=== PATIENT | female | born 1985 | race Caucasian/White ===

== ENCOUNTER 2020-10-28 08:37 | Emergency (ER) | payer SELFPAY ==
[2020-10-28 08:42] VITALS: BMI 28.4
[2020-10-28] MEDS ORDERED: SODIUM CHLORIDE 0.9% 500 ML INFUS.BAG IV ONE (09:09)
[2020-10-28] MEDS ORDERED: ONDANSETRON 4 MG/2 ML VIAL IVPUSH ONE (09:09)
[2020-10-28] MEDS ORDERED: FAMOTIDINE 10 MG TABLET PO ONE (09:09)
[2020-10-28] MEDS ORDERED: MAG HYDROX/AL HYDROX/SIMETH 30 ML UNIT-DOSE CUP PO ONE (09:10)
[2020-10-28] MEDS ORDERED: MAG HYDROX/AL HYDROX/SIMETH 30 ML UNIT-DOSE CUP ONE (09:17)
[2020-10-28] MEDS ORDERED: FAMOTIDINE 20 MG TABLET ONE (09:17)
[2020-10-28] MEDS ORDERED: ONDANSETRON 4 MG/2 ML VIAL ONE (09:18)
[2020-10-28 10:48] LABS: BASO % 0.4 % (0-2.0); EOS % 1.1 % (0-4.5); HEMATOCRIT 42.3 % (32.4-45.2); HEMOGLOBIN 14.6 GM/dL (10.7-15.3); LYMPH % 22.5 % (8-40); MCH 30.5 pg (25.7-33.7); MCHC 34.6 g/dl (32.0-36.0); MEAN CELL VOLUME 88.2 fl (80-96); MEAN PLT VOLUME 8.7 fl (7.5-11.1); MONO % 7.5 % (3.8-10.2); NEUT % 68.5 % (42.8-82.8); PLATELET COUNT 274 K/MM3 (134-434); RDW 13.2 % (11.6-15.6); WHITE BLOOD COUNT 10.2 K/mm3 (4.0-10.0)
[2020-10-28 11:06] LABS: ALBUMIN 4.1 g/dl (3.4-5.0); BLOOD UREA NITROGEN 7.6 mg/dL (7-18); CALCIUM 9.4 mg/dL (8.5-10.1)
[2020-10-28 11:09] LABS: CREATININE 0.6 mg/dL (0.55-1.3)
[2020-10-28 11:11] LABS: BILIRUBIN,TOTAL 0.4 mg/dL (0.2-1); TOT PROT 7.7 g/dl (6.4-8.2)
[2020-10-28 11:29] LABS: URINE APPEARANCE CLEAR; URINE BILIRUBIN NEGATIVE (NEGATIVE); URINE COLOR YELLOW; URINE GLUCOSE (UA) NEGATIVE (NEGATIVE); URINE KETONE NEGATIVE (NEGATIVE); URINE LEUK ESTERASE NEGATIVE (NEGATIVE); URINE NITRITE NEGATIVE (NEGATIVE); URINE PROTEIN NEGATIVE (NEGATIVE); URINE UROBILINOGEN 0.2 mg/dL (0.2-1.0)
[2020-10-28] MEDS ORDERED: SUCRALFATE 1 GM TABLET (FP) PO ONE (12:54)
[2020-10-28] MEDS ORDERED: SUCRALFATE 1 GM TABLET (FP) ONE (13:09)
[2020-10-28 13:24] VITALS: BP 105/63; PULSE 64; TEMP 98.2
== END 2020-10-28 12:45 | disposition home or self-care (01) ==
LOC: JER 08:37
PROC: 3E033GC Introduction of Other Therapeutic Substance into Peripheral Vein, Percutaneous Approach (ICD-10-PCS; principal; 2020-10-28)
DX: K29.00 Acute gastritis without bleeding (principal)
CPT/HCPCS: 36415; 71046-TC-FY; 76705-TC; 80053; 81003; 83690; 84703; 85025; 87086; 93005; 93010; 99285-25

== ENCOUNTER 2024-09-03 15:55 | Emergency (ER) | payer OTHER ==
[2024-09-03 16:00] VITALS: BP 115/74; PULSE 100; RESP 20; TEMP 99; BMI 27.3
[2024-09-03 17:27] LABS: BASO % 0.2 % (0-2.0); EOS % 0.4 % (0-4.5); HEMOGLOBIN 13.9 GM/dL (10.7-15.3); LYMPH % 11.8 % (8-40); MCH 29.7 pg (25.7-33.7); MCHC 34.7 g/dl (32.0-36.0); MEAN CELL VOLUME 85.7 fl (80-96); MEAN PLT VOLUME 7.4 fl (7.5-11.1); MONO % 6.8 % (3.8-10.2); NEUT % 80.8 % (42.8-82.8); PLATELET COUNT 236 10^3/uL (134-434); RBC 4.67 M/mm3 (3.60-5.2); RDW 13.2 % (11.6-15.6); WHITE BLOOD COUNT 7.3 K/mm3 (4.0-10.0)
[2024-09-03 17:53] LABS: URINE APPEARANCE CLEAR; URINE BILIRUBIN NEGATIVE (NEGATIVE); URINE COLOR YELLOW; URINE GLUCOSE (UA) NEGATIVE (NEGATIVE); URINE KETONE NEGATIVE (NEGATIVE); URINE LEUK ESTERASE NEGATIVE (NEGATIVE); URINE NITRITE NEGATIVE (NEGATIVE); URINE PROTEIN NEGATIVE (NEGATIVE); URINE UROBILINOGEN 0.2 mg/dL (0.2-1.0)
[2024-09-03] MEDS ORDERED: ACETAMINOPHEN INJECTION 100 ML ONE (18:05)
[2024-09-03] MEDS: ACETAMINOPHEN 1000 MG/100 ML BAG IVPB ONE (18:11)
[2024-09-03 18:17] LABS: POTASSIUM 3.7 mmol/L (3.5-5.1)
[2024-09-03 18:22] LABS: BLOOD UREA NITROGEN 7.1 mg/dL (7-18); CALCIUM 8.9 mg/dL (8.5-10.1); CREATININE 0.5 mg/dL (0.55-1.3)
[2024-09-03 19:05] LABS: EPI CELLS 9.4 /uL (0-25.1); HYALINE CASTS 0.13 /uL (0-3.1); URINE BACTERIA 293.7 /uL (0-1359); URINE RBC 9.4 /uL (0-23.9); URINE WBC 2.3 /uL (0-25.8)
== END 2024-09-03 21:42 | disposition home or self-care (01) ==
LOC: JER 15:55
PROC: 3E033NZ Introduction of Analgesics, Hypnotics, Sedatives into Peripheral Vein, Percutaneous Approach (ICD-10-PCS; principal; 2024-09-03)
DX: O20.9 Hemorrhage in early pregnancy, unspecified (principal); O99.891 Other specified diseases and conditions complicating pregnancy; R50.9 Fever, unspecified; Z3A.10 10 weeks gestation of pregnancy
CPT/HCPCS: 36415; 76817-TC; 80048; 81003; 84702; 85025; 86850; 86900; 86901; 87086; 99284-25; J0131